=== PATIENT | male | born 1990 | race Caucasian/White ===

== ENCOUNTER 2016-12-14 21:58 | Emergency (ER) | payer BC, OTHER ==
[2016-12-14] MEDS ORDERED: Hydromorphone 1 mg/ml Ampule IV ONE (22:08)
[2016-12-14] MEDS ORDERED: Sodium Chloride 0.9% 1000 ML 1,000 ML IV STA (22:08)
[2016-12-14] MEDS ORDERED: Phenergan 25 MG INJ IV ONE (22:08)
--- NOTE | 2016-12-14 22:15 | ERPHSYRPT ---
- History of Present Illness Time Seen by Provider: 12/14/16 22:04 Source: patient Exam Limitations: no limitations Allergies/Adverse Reactions: Sulfa (Sulfonamide Antibiotics) Allergy (Verified 12/14/16 22:19) - Nursing Vital Signs Nursing Vital Signs: Initial Vital Signs Temperature 98.7 F Temperature Source Oral Pulse Rate 110 Respiratory Rate 16 Blood Pressure [Right Arm] 112/70 Pain Intensity 0 - Physical Exam General Appearance: alert Eyes, Ears, Nose, Throat Exam: pharynx normal, moist mucous membranes Neck Exam: normal inspection Cardiovascular/Respiratory Exam: normal breath sounds, heart sounds normal Abdominal Exam: soft (B.S. NORNAL) Back Exam: normal range of motion Shoulder Exam: limited ROM (MILD TENDERNESS OF THE LEFT SHOULDER WITH NO ACTIVE ROM; GOOD SENSATION, CAPILLARY REFILL AND ROM OF ALL LEFT HAND DIGITS.) Elbow/Forearm Exam: normal ROM Wrist Exam: normal ROM Hand Exam: normal ROM Neuro/Tendon Exam: normal sensation Mental Status Exam: alert Skin Exam: warm, dry Procedures - Joint Reduction Timeout: Performed Joint Reduction Site: Left, shoulder Conscious Sedation: No Reduction Attempts: 1 Pre-Procedure Neurovascular Exam: neurovascular intact Post Procedure Neurovascular Exam: neurovascular intact Post Joint Reduction Film: joint reduced - Radiology Exams Left Shoulder X-ray Interpretation: Interpreted by me (DISLOCATED LEFT SHOULDER; POST REDUCTION X-RAY SHOWS DISLOCATION IS REDUCED.) Ordered Tests: Active Orders 24 hr Category Date Time Status Cold Application STAT Care 12/14/16 23:06 Active IV Insertion STAT Care 12/14/16 22:08 Active SHOULDER Stat Exams 12/14/16 22:09 Taken Medication Summary Generic Name Dose Route Start Last Admin Trade Name Freq PRN Reason Stop Dose Admin Sodium Chloride 1,000 mls @ 999 mls/hr 12/14/16 22:08 12/14/16 22:26 Sodium Chloride 0.9% 1000 Ml IV 12/14/16 23:08 999 mls/hr .Q1H1M STA Administration Discontinued Medications Generic Name Dose Route Start Last Admin Trade Name Freq PRN Reason Stop Dose Admin Hydromorphone HCl 2 mg 12/14/16 22:08 12/14/16 22:30 Hydromorphone 1 Mg/Ml Ampule IV 12/14/16 22:09 2 mg STAT ONE Administration Hydromorphone HCl Confirm 12/14/16 22:21 Hydromorphone 1 Mg/Ml Ampule Administered 12/14/16 22:22 Dose 2 mg .ROUTE .STK-MED ONE Sodium Chloride Confirm 12/14/16 22:21 Sodium Chloride 0.9% 1000 Ml Administered 12/14/16 22:22 Dose 1,000 mls @ ud .ROUTE .STK-MED ONE Promethazine HCl 12.5 mg 12/14/16 22:08 12/14/16 22:26 Phenergan 25 Mg Inj IV 12/14/16 22:09 12.5 mg STAT ONE Administration Promethazine HCl Confirm 12/14/16 22:21 Phenergan 25 Mg Inj Administered 12/14/16 22:22 Dose 25 mg .ROUTE .STK-MED ONE - Departure Time of Disposition: 23:09 Departure Disposition: Home Clinical Impression: LEFT SHOULDER DISLOCATION-REDUCED IN ER. Condition: Fair Critical Care Time: No Referrals: GULSHAN MULTANI [Primary Care Provider] - Instructions: Shoulder Dislocation Additional Instructions: FOLLOW UP WITH PRIVATE DOCTOR TOMORROW. WEAR LEFT ARM SLING FOR 48 HOURS. DO NOT USE LEFT ARM FOR 48 HOURS. Prescriptions: Naproxen [Naprosyn] 500 mg PO Q12H PRN PRN #20 tablet PRN Reason: Pain
[2016-12-14] MEDS ORDERED: Sodium Chloride 0.9% 1000 ML 1,000 ML ONE (22:21)
[2016-12-14] MEDS ORDERED: Phenergan 25 MG INJ ONE (22:21)
[2016-12-14] MEDS ORDERED: Hydromorphone 1 mg/ml Ampule ONE (22:21)
[2016-12-14 23:19] VITALS: BP 117/64; PULSE 84; O2SAT 99
--- NOTE | 2016-12-15 08:57 | XRAY ---
Indication: Pain. Shoulder dislocation. Comparison: September 09, 2015. 3 views of the left shoulder again demonstrates anterior-inferior dislocation of the humeral head. No other bony, articular, or soft tissue abnormalities.
== END 2016-12-14 23:19 | disposition home or self-care (01) ==
LOC: ED 21:58
PROC: 0RSKXZZ Reposition Left Shoulder Joint, External Approach (ICD-10-PCS; principal; 2016-12-14)
DX: S43.002A Unspecified subluxation of left shoulder joint, initial encounter (principal); X50.0XXA Overexertion from strenuous movement or load, initial encounter; Y93.67 Activity, basketball
CPT/HCPCS: 23650; 36000; 73030; 96360; 96374; 96375; 99284; 99285; J1170; J2550

== ENCOUNTER 2019-08-22 03:17 | Emergency (ER) | payer BC, OTHER ==
[2019-08-22] MEDS ORDERED: TYLENOL EXTRA STRENGTH 500 MG PO STA (03:34)
[2019-08-22] MEDS ORDERED: TYLENOL EXTRA STRENGTH 500 MG ONE (03:36)
--- NOTE | 2019-08-22 03:44 | ERPHSYRPT ---
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 Patient A+o X3. Patient's skin pink, warm and dry. Patient complains of shoulder pain 9/10 after slipping on ice and landing on left shoulder. Patient states the fall happened 20 minutes prior to coming to ED. Left should noted to be lower than right shoulder. Patient states his left shoulder has been out of place X 5 in the past. Physician History: Patient states he has left shoulder pain. Patient states he slipped on the ice just prior to arrival. He states he has had previous shoulder dislocations in that shoulder. He now has pain and discomfort in that shoulder. Location: left shoulder Quality: sharp Radiation: none Severity: moderate Duration: just [employer] Timing: after fall Modifying factors/associated signs and symptoms: patient has been drinking tonight, no pain medication [employer] Allergies/Adverse Reactions: Sulfa (Sulfonamide Antibiotics) Allergy (Verified 08/22/19 03:22) Hx Influenza Vaccination/Date Given: No Hx Pneumococcal Vaccination/Date Given: No Immunizations Up to Date: Yes - Review of Systems Constitutional: No Fever, No Chills Eyes: No Symptoms Ears, Nose, & Throat: No Symptoms Respiratory: No Cough, No Dyspnea Cardiac: No Chest Pain, No Edema, No Syncope Abdominal/Gastrointestinal: No Abdominal Pain, No Nausea, No Vomiting, No Diarrhea Genitourinary Symptoms: No Dysuria Musculoskeletal: Other (left shoulder pain ), No Back Pain, No Neck Pain Skin: No Rash Neurological: No Dizziness, No Focal Weakness, No Sensory Changes Psychological: No Symptoms Endocrine: No Symptoms All Other Systems: Reviewed and Negative - Past Medical History Pertinent Past Medical History: Yes Neurological History: No Pertinent History ENT History: No Pertinent History Cardiac History: No Pertinent History Respiratory History: No Pertinent History Endocrine Medical History: No Pertinent History Musculoskeletal History: No Pertinent History GI Medical History: No Pertinent History History: No Pertinent History Psycho-Social History: No Pertinent History Male Reproductive Disorders: No Pertinent History Other Medical History: NONE NOTED - Past Surgical History Past Surgical History: Yes Neuro Surgical History: No Pertinent History Cardiac: No Pertinent History Respiratory: No Pertinent History Gastrointestinal: Appendectomy Genitourinary: No Pertinent History Musculoskeletal: No Pertinent History Male Surgical History: No Pertinent History Other Surgical History: Left shoulder surgery [address] Mathews - Social History Smoking Status: Never smoker Exposure to second hand smoke: Yes Drug Use: none Patient Lives Alone: No - Nursing Vital Signs Nursing Vital Signs: Initial Vital Signs Temperature 98.2 F 08/22/19 03:23 Pulse Rate 100 H 08/22/19 03:23 Respiratory Rate 19 08/22/19 03:23 Blood Pressure 130/84 08/22/19 03:23 O2 Sat by Pulse Oximetry 99 08/22/19 03:23 Pain Scale Pain Intensity 9 - Physical Exam General Appearance: alert Eyes, Ears, Nose, Throat Exam: moist mucous membranes Neck Exam: non-tender, supple Cardiovascular/Respiratory Exam: chest non-tender, normal breath sounds, regular rate/rhythm, no respiratory distress Abdominal Exam: non-tender, No guarding Back Exam: normal inspection, No vertebral tenderness Neuro/Tendon Exam: normal sensation, normal motor functions Mental Status Exam: alert, oriented x 3, cooperative Skin Exam: normal color, warm, dry SpO2: 99 Comments: No obvious deformity, sensation intact, 2+ capillary refill, 2 point tactile discrimination intact. Decreased range of motion due to pain. Compartments are soft, nontender. Overlying skin shows no tenting, bruising, ecchymosis. Procedures - Joint Reduction Timeout: Performed Joint Reduction Site: Left, shoulder Conscious Sedation: No Reduction Attempts: 1 Pre-Procedure Neurovascular Exam: neurovascular intact, well perfused, no neuro deficit Post Procedure Neurovascular Exam: neurovascular intact, good alignment, changed from pre-exam Post Joint Reduction Film: joint reduced Progress: Left shoulder reduction with dilaudid and ativan. Ordered Tests: Active Orders 24 hr Category Date Time Status IV Insertion STAT Care 08/22/19 03:50 Active SHOULDER Stat Exams 08/22/19 Ordered SHOULDER Stat Exams 08/22/19 Ordered Medication Summary Discontinued Medications Generic Name Dose Route Start Last Admin Trade Name Freq PRN Reason Stop Dose Admin Acetaminophen 1,000 mg 08/22/19 03:34 08/22/19 03:37 Tylenol Extra Strength 500 Mg PO 08/22/19 03:35 1,000 mg STAT STA Administration Acetaminophen Confirm 08/22/19 03:36 Tylenol Extra Strength 500 Mg Administered 08/22/19 03:37 Dose 1,000 mg .ROUTE .STK-MED ONE Hydromorphone HCl 1 mg 08/22/19 03:51 08/22/19 04:02 Hydromorphone 1 Mg/Ml Ampule IV 08/22/19 03:52 1 mg STAT ONE Administration Hydromorphone HCl Confirm 08/22/19 04:00 Hydromorphone 1 Mg/Ml Ampule Administered 08/22/19 04:01 Dose 1 mg .ROUTE .STK-MED ONE Lorazepam 1 mg 08/22/19 03:51 08/22/19 04:03 Ativan 2 Mg/1 Ml Vial IV 08/22/19 03:52 1 mg STAT ONE Administration Lorazepam Confirm 08/22/19 04:00 Ativan 2 Mg/1 Ml Vial Administered 08/22/19 04:01 Dose 2 mg .ROUTE .STK-MED ONE Ondansetron HCl 4 mg 08/22/19 03:50 08/22/19 04:02 Zofran 4 Mg/2 Ml Vial IV 08/22/19 03:51 4 mg STAT ONE Administration Ondansetron HCl Confirm 08/22/19 03:59 Zofran 4 Mg/2 Ml Vial Administered 08/22/19 04:00 Dose 4 mg .ROUTE .STK-MED ONE - Progress Progress: improved Progress Note: 08/22/19 03:40 We will obtain left shoulder XR. No clavicle tenderness. Oral tylenol here for pain. 08/22/19 04:23 Shoulder was reduced using rodriguez technique and IV narcotics. Follow up imaging appears to be reduced in good place. Patient will follow up with ortho walk in clinic on 08/23/19 here at [facility] [place] This is the same ortho group that has done his previous shoulder surgeries. - Departure Departure Disposition: Home Clinical Impression: Dislocation of left shoulder joint Condition: Stable Critical Care Time: No Referrals: ONESIMO QUINTANA [Primary Care Provider] -
[2019-08-22] MEDS ORDERED: Zofran 4 MG/2 ML VIAL IV ONE (03:50)
[2019-08-22] MEDS ORDERED: Ativan 2 MG/1 ML VIAL IV ONE (03:51)
[2019-08-22] MEDS ORDERED: Hydromorphone 1 mg/ml Ampule IV ONE (03:51)
[2019-08-22] MEDS ORDERED: Zofran 4 MG/2 ML VIAL ONE (03:59)
[2019-08-22] MEDS ORDERED: Ativan 2 MG/1 ML VIAL ONE (04:00)
[2019-08-22] MEDS ORDERED: Hydromorphone 1 mg/ml Ampule ONE (04:00)
[2019-08-22 04:42] VITALS: BP 121/76; PULSE 97; O2SAT 97
--- NOTE | 2019-08-22 08:33 | XRAY ---
Indication: Pain following fall. Comparison: December 14, 2016. 3 views of the left shoulder again demonstrates anterior-inferior humeral head dislocation. No other bony, articular, or soft tissue abnormalities.
--- NOTE | 2019-08-22 08:36 | XRAY ---
Indication: Status post reduction. Comparison: Taken earlier in the day. 2 views of the left shoulder demonstrates successful reduction of previous humeral head dislocation. No other bony, articular, or soft tissue abnormalities.
== END 2019-08-22 04:42 | disposition home or self-care (01) ==
LOC: ED 03:17
DX: S43.005A Unspecified dislocation of left shoulder joint, initial encounter (principal); W00.0XXA Fall on same level due to ice and snow, initial encounter
CPT/HCPCS: 23650; 36000; 73030; 96374; 96375; 99284; J1170; J2060; J2405; A9270-GY

== ENCOUNTER 2019-08-30 22:48 | Emergency (ER) | payer OTHER ==
[2019-08-30] MEDS ORDERED: Hydromorphone 1 mg/ml Ampule ONE (23:11)
[2019-08-30] MEDS: DILAUDID 2 MG INJECTION IV STA (23:13)
[2019-08-30] MEDS ORDERED: Amidate 20 MG/10 ML IV ONE (23:30)
[2019-08-30] MEDS ORDERED: Sodium Chloride 0.9% 500 ML 500 ML IV ONE (23:45)
[2019-08-31 00:03] VITALS: O2SAT 96
[2019-08-31] MEDS ORDERED: Zofran 4 MG/2 ML VIAL ONE (00:25)
--- NOTE | 2019-08-31 00:29 | ERPHSYRPT ---
- History of Present Illness Time Seen by Provider: 08/30/19 22:50 Source: patient Exam Limitations: no limitations Patient Subjective Stated Complaint: pt states, "I was standing up and put my arm out and my lt shoulder just popped out of place but I'm not sure if it's completely out cause it feels different this time.....it's moving around in there". Triage Nursing Assessment: pt c/o lt shoulder pain due to "being out of socket" . Pt having muscle spasms in the shoulder as well. Lt shoulder is significantly lower than right, pt rates pain 10 on 0-10 scale. Physician History: 28-year-old male with recurrent dislocation of the left shoulder presents once again with a dislocation. Occurred: just prior to arrival Method of Injury: unknown Quality: sharpness Severity of Pain-Max: moderate Severity of Pain-Current: moderate Modifying Factors: Improves With: movement Associated Symptoms: none Allergies/Adverse Reactions: Sulfa (Sulfonamide Antibiotics) Allergy (Verified 08/22/19 03:22) Home Medications: Hydrocodone Bit/Acetaminophen [Hydrocodon-Acetaminophen 5-325] 1 tab PO Q6H PRN PRN 08/30/19 [History] Hx Tetanus, Diphtheria Vaccination/Date Given: Yes Hx Influenza Vaccination/Date Given: No Hx Pneumococcal Vaccination/Date Given: No Immunizations Up to Date: Yes - Review of Systems Constitutional: No Fever, No Chills Eyes: No Symptoms Ears, Nose, & Throat: No Symptoms Respiratory: No Cough, No Dyspnea Cardiac: No Chest Pain, No Edema, No Syncope Abdominal/Gastrointestinal: No Abdominal Pain, No Nausea, No Vomiting, No Diarrhea Genitourinary Symptoms: No Dysuria Musculoskeletal: No Back Pain, No Neck Pain Skin: No Rash Neurological: No Dizziness, No Focal Weakness, No Sensory Changes Psychological: No Symptoms Endocrine: No Symptoms All Other Systems: Reviewed and Negative - Past Medical History Pertinent Past Medical History: Yes Neurological History: No Pertinent History ENT History: No Pertinent History Cardiac History: No Pertinent History Respiratory History: No Pertinent History Endocrine Medical History: No Pertinent History Musculoskeletal History: Other GI Medical History: No Pertinent History History: No Pertinent History Psycho-Social History: No Pertinent History Male Reproductive Disorders: No Pertinent History Other Medical History: Dislocated lt shoulder 4 times. lt shoulder continues to pop out of place - Past Surgical History Past Surgical History: Yes Neuro Surgical History: No Pertinent History Cardiac: No Pertinent History Respiratory: No Pertinent History Gastrointestinal: Appendectomy Genitourinary: No Pertinent History Musculoskeletal: No Pertinent History Male Surgical History: No Pertinent History Other Surgical History: Left shoulder surgery [address] Mathews - Social History Smoking Status: Never smoker Exposure to second hand smoke: No Drug Use: none Patient Lives Alone: No - Nursing Vital Signs Nursing Vital Signs: Initial Vital Signs Temperature 98.5 F 08/30/19 22:48 Pulse Rate 75 08/30/19 22:48 Respiratory Rate 18 08/30/19 22:48 Blood Pressure 131/78 08/30/19 22:48 O2 Sat by Pulse Oximetry 98 08/30/19 22:48 Pain Scale Pain Intensity 10 - Physical Exam General Appearance: moderate distress, alert Eyes, Ears, Nose, Throat Exam: moist mucous membranes Neck Exam: non-tender, supple Cardiovascular/Respiratory Exam: chest non-tender, normal breath sounds, regular rate/rhythm, no respiratory distress Abdominal Exam: non-tender, No guarding Back Exam: normal inspection, No vertebral tenderness Shoulder Exam: asymmetry, deformity (palpation medical below the acromial process finds an empty space the head of the humerus to be palpated anterior to the shoulder or) Elbow/Forearm Exam: normal inspection Wrist Exam: normal inspection Hand Exam: normal inspection Neuro/Tendon Exam: normal sensation, normal motor functions Mental Status Exam: alert, oriented x 3, cooperative Skin Exam: normal color, warm, dry SpO2 Interpretation: normal SpO2: 96 Procedures - Splinting Location of Splint: Left, Upper Arm Type of Splint: Other ([id number] for post reduction dislocation of the left shoulder) Splint Applied By: ED Nurse Pre-Proc Neuro Vasc Exam: normal Post-Proc Neuro Vasc Exam: neurovascular intact, unchanged from pre-exam - Joint Reduction Joint Reduction Site: Left, shoulder Conscious Sedation: Yes Reduction Attempts: 1 Pre-Procedure Neurovascular Exam: neurovascular intact, well perfused Post Procedure Neurovascular Exam: neurovascular intact, unchanged from pre-exam Post Joint Reduction Film: joint reduced - Course Nursing assessment & vital signs reviewed: Yes - Radiology Exams Left Shoulder X-ray Interpretation: Interpreted by me, Other (initial film showed an anterior dislocation left shoulder postreduction film showed it to be reduced) Ordered Tests: Active Orders 24 hr Category Date Time Status Sling Application STAT Care 08/31/19 00:23 Ordered SHOULDER Stat Exams 08/30/19 Ordered SHOULDER Stat Exams 08/31/19 Ordered Medication Summary Discontinued Medications Generic Name Dose Route Start Last Admin Trade Name Tory PRN Reason Stop Dose Admin Hydromorphone HCl 2 mg 08/30/19 23:10 08/30/19 23:13 Dilaudid 2 Mg Injection IV 08/30/19 23:11 2 mg ONCE STA Administration Hydromorphone HCl Confirm 08/30/19 23:11 Hydromorphone 1 Mg/Ml Ampule Administered 08/30/19 23:12 Dose 2 mg .ROUTE .STK-MED ONE Sodium Chloride Confirm 08/30/19 23:45 Sodium Chloride 0.9% 500 Ml Administered 08/30/19 23:46 Dose 500 mls @ ud IV .STK-MED ONE - Progress Progress: improved - Departure Departure Disposition: Home Clinical Impression: Anterior dislocation of left shoulder Condition: Stable Critical Care Time: No Referrals: ONESIMO QUINTANA [Primary Care Provider] - Instructions: Shoulder Tendinopathy (DC) Additional Instructions: wear sling and swath for 10 days
[2019-08-31] MEDS: Zofran 4 MG/2 ML VIAL IV ONE (00:31)
[2019-08-31 00:41] VITALS: BP 105/65; PULSE 76
--- NOTE | 2019-08-31 09:28 | XRAY ---
Indication: Dislocation. Comparison: August 22, 2019. 3 views of the left shoulder demonstrates recurring anterior inferior humeral head dislocation. No other bony, articular, or soft tissue abnormalities.
--- NOTE | 2019-08-31 09:29 | XRAY ---
Indication: Postreduction. Comparison: Taken earlier in the day. 2 AP views of the left shoulder demonstrates successful reduction of previous humeral head dislocation. No other bony, articular, or soft tissue abnormalities.
== END 2019-08-31 00:49 | disposition home or self-care (01) ==
LOC: ED 22:48
DX: S43.005A Unspecified dislocation of left shoulder joint, initial encounter (principal); X50.0XXA Overexertion from strenuous movement or load, initial encounter; M25.512 Pain in left shoulder; M62.838 Other muscle spasm
CPT/HCPCS: 23650; 36000; 73030; 96374; 96375; 99284; J1170; J2405

== ENCOUNTER 2020-02-28 07:47 | Emergency (ER) | payer OTHER ==
--- NOTE | 2020-02-28 08:15 | ERPHSYRPT ---
- History of Present Illness Time Seen by Provider: 02/28/20 08:06 Source: patient Exam Limitations: no limitations Patient Subjective Stated Complaint: swelling in scrotum Triage Nursing Assessment: pt to ED c/o swelling to scrotum x 2 weeks but w orsening over the weekend. denies pain at this time, denies urinary issues. reports hx blood clot in scrotum in Oct, states he was placed on medications for a short time, but does not have to take those meds any longer. Physician History: 29 yo wm w scrotal edema x2 wks. Pt states that he had a scrotal blood clot 10/02/19 which is confirmed bu US report. Pt's pain minimal. He denies fever/dysuria/hematuria/N/V/D/penile dc. Timing/Duration: other (2wks) Activites at Onset: none Quality: other (Pain minimal) Onset Location: scrotal Pain Radiation: none Severity of Pain-Max: mild Severity of Pain-Current: none Modifying Factors: Improves With: nothing Associated Symptoms: denies symptoms Prior abdominal problems: none Sexual intercourse history: non-contributory Allergies/Adverse Reactions: Sulfa (Sulfonamide Antibiotics) Allergy (Verified 02/28/20 08:01) Home Medications: Benazepril HCl 10 mg PO DAILY 02/28/20 [History] Hx Tetanus, Diphtheria Vaccination/Date Given: Yes Hx Influenza Vaccination/Date Given: No Hx Pneumococcal Vaccination/Date Given: No Travel Risk - International Travel Have you traveled outside of the country in past 3 weeks: No - Coronavirus Screening Are you exhibiting any of the following symptoms?: No Close contact with a COVID-19 positive Pt in past 14-21 Days: No - Past Medical History Pertinent Past Medical History: Yes Neurological History: No Pertinent History ENT History: No Pertinent History Cardiac History: Hypertension Respiratory History: No Pertinent History Endocrine Medical History: No Pertinent History Musculoskeletal History: Other GI Medical History: No Pertinent History History: No Pertinent History Psycho-Social History: No Pertinent History Male Reproductive Disorders: No Pertinent History Other Medical History: Dislocated lt shoulder 4 times. lt shoulder continues to pop out of place - Past Surgical History Past Surgical History: Yes Neuro Surgical History: No Pertinent History Cardiac: No Pertinent History Respiratory: No Pertinent History Gastrointestinal: Appendectomy Genitourinary: No Pertinent History Musculoskeletal: No Pertinent History Male Surgical History: No Pertinent History Other Surgical History: Left shoulder surgery [address] Mathews - Social History Smoking Status: Never smoker Exposure to second hand smoke: No Drug Use: none Patient Lives Alone: No Significant Family History: no pertinent family hx - Review of Systems Constitutional: No Symptoms Eyes: No Symptoms Ears, Nose, & Throat: No Symptoms Respiratory: No Symptoms Cardiac: No Symptoms Abdominal/Gastrointestinal: No Symptoms Genitourinary Symptoms: No Symptoms Musculoskeletal: No Symptoms Skin: No Symptoms Neurological: No Symptoms Psychological: No Symptoms Endocrine: No Symptoms Hematologic/Lymphatic: No Symptoms Immunological/Allergic: No Symptoms All Other Systems: Reviewed and Negative - Nursing Vital Signs Nursing Vital Signs: Initial Vital Signs Temperature 98.3 F 02/28/20 07:52 Pulse Rate 96 H 02/28/20 07:52 Respiratory Rate 18 02/28/20 07:52 Blood Pressure 178/96 02/28/20 07:52 O2 Sat by Pulse Oximetry 98 02/28/20 07:52 Pain Scale Pain Intensity 0 - Physical Exam General Appearance: no apparent distress Eye Exam: PERRL/EOMI, eyes nml inspection, No scleral icterus, No pale conjunctivae, No photophobia Ears, Nose, Throat Exam: normal ENT inspection, TMs normal, pharynx normal, moist mucous membranes Neck Exam: normal inspection, non-tender, supple, full range of motion Respiratory Exam: normal breath sounds, lungs clear, airway intact Cardiovascular Exam: regular rate/rhythm, normal heart sounds, normal peripheral pulses, No murmur Gastrointestinal/Abdomen Exam: soft, normal bowel sounds, No tenderness, No distention Male Genital Exam: lesions (Circ'ed/No dc/Testes descended/NTTP/Hard circumscribed area between testes) Back Exam: normal inspection, normal range of motion Extremity Exam: normal inspection, normal range of motion Neurologic Exam: alert, oriented x 3, cooperative, director dance II-XII nml as tested, normal mood/affect, nml cerebellar function, sensation nml, No motor deficits, No sensory deficit Skin Exam: normal color, warm, dry, No rash Lymphatic Exam: No adenopathy, No axilla node tender (L) SpO2 Interpretation: normal SpO2: 98 O2 Delivery: Room Air - Radiology Ultrasound Exam Scrotal Ultrasound: discussed w/radiologist (L scrotal varicoceles w intraluminal echogenicities concderning for thrombi) Ordered Tests: Active Orders 24 hr Category Date Time Status TESTICLE [US] Stat Exams 02/28/20 09:18 Completed UA W/RFX UR CULTURE Stat Lab 02/28/20 08:26 Completed Medication Summary Discontinued Medications Generic Name Dose Route Start Last Admin Trade Name Tory PRN Reason Stop Dose Admin Enoxaparin Sodium 120 mg 02/28/20 10:29 02/28/20 10:33 Enoxaparin Sodium SQ 02/28/20 10:30 120 mg 1XONLY ONE Administration Enoxaparin Sodium Confirm 02/28/20 10:32 Enoxaparin Sodium Administered 02/28/20 10:33 Dose 120 mg SQ .STK-MED ONE Lab/Rad Data: Laboratory Results 02/28/20 Range/Units 08:26 Urine Color YELLOW (YELLOW) Urine Appearance CLEAR (CLEAR) Urine pH 5.0 (5-6) Ur Specific [place] 1.026 (1.005-1.025) Urine Protein NEGATIVE (Negative) Urine Ketones NEGATIVE (NEGATIVE) Urine Blood MODERATE (0-5) Sammy/ul Urine Nitrite NEGATIVE (NEGATIVE) Urine Bilirubin NEGATIVE (NEGATIVE) Urine Urobilinogen NEGATIVE (0-1) mg/dL Ur Leukocyte Esterase NEGATIVE (NEGATIVE) Urine WBC (Auto) 0-2 (0-5) /HPF Urine RBC (Auto) 0-2 (0-2) /HPF U Epithel Cells (Auto) NONE (FEW) /HPF Urine Bacteria (Auto) RARE (NEGATIVE) /HPF Urine Mucus (Auto) SLIGHT (NEGATIVE) /HPF Urine Culture Reflexed NO (NO) Urine Glucose NEGATIVE (NEGATIVE) mg/dL - Progress Progress: unchanged Progress Note: 02/28/20 10:[address] Hendricks(urology concreter), conservative treatment only. 02/28/20 10:24 Will discharge pt on 81mg ASA daily w PCP follow up. 02/28/20 10:[address] Teran before discharge, wants lovenox injection/daily ASA 81mg/office follow up Counseled pt/family regarding: need for follow-up - Departure Departure Disposition: Home Clinical Impression: Varicocele, Thrombus in varicocele Condition: Stable Critical Care Time: No Referrals: ONESIMO TERAN [Primary Care Provider] - Instructions: Varicocele, Choosing an Oral Medicine to Prevent or Treat Blood Clots Additional Instructions: Follow up with family MD in 1-2 days Start 81mg aspirin daily for 10 days
[2020-02-28 08:46] LABS: Appearance CLEAR (CLEAR); Bacteria RARE /HPF (NEGATIVE); Bilirubin NEGATIVE (NEGATIVE); Blood MODERATE Ery/ul (0-5); Glucose NEGATIVE (NEGATIVE); Ketones NEGATIVE (NEGATIVE); Leukocyte Esterase NEGATIVE (NEGATIVE); Mucus SLIGHT /HPF (NEGATIVE); Nitrite NEGATIVE (NEGATIVE); Protein,Urine Dip NEGATIVE (Negative); RBC 0-2 /HPF (0-2); Specific Gravity 1.026 (1.005-1.025); Urobilinogen NEGATIVE mg/dL (0-1); WBC 0-2 /HPF (0-5)
--- NOTE | 2020-02-28 09:45 | XRAY ---
Indication: Scrotal edema. Two-dimensional testicular sonogram performed. Comparison: October 02, 2019. Both testicles again homogeneous in echogenicity with normal color perfusion. Right testicle measures 4.5 x 2.3 x 3.3 cm and the left measures 4.5 x 2.7 x 3.2 cm. Right epididymis demonstrates new 4.6 mm cyst and left epididymis demonstrates new 3.4 mm cyst. Tiny right and small left nonspecific hydroceles. Left scrotum demonstrates new large varicoceles with intraluminal echogenicities, possible thrombi. Impression: 1. New left scrotum varicoceles with intraluminal echogenicities concerning for thrombi. 2. New tiny bilateral epididymal cysts. 3. Negative for testicular torsion or suspicious intratesticular mass.
[2020-02-28] MEDS ORDERED: ENOXAPARIN SODIUM SQ ONE ×2 (10:29→10:32)
[2020-02-28 10:46] VITALS: BP 113/74; PULSE 88
[2020-02-28 11:35] VITALS: O2SAT 98
== END 2020-02-28 10:44 | disposition home or self-care (01) ==
LOC: ED 07:47
DX: I86.1 Scrotal varices (principal)
CPT/HCPCS: 76870; 81001; 96372; 99283; J1650